=== PATIENT | male | born 1990 | race Hispanic/Latino ===

== ENCOUNTER → 2022-02-24 | Outpatient (CLI) | payer OTHER | END | disposition home or self-care (01) | LOC: RAH 09:23 | PROVIDERS: ATTEND Internal Medicine | DX: R19.00 Intra-abdominal and pelvic swelling, mass and lump, unspecified site (principal) | CPT/HCPCS: 76705 ==

== ENCOUNTER → 2022-03-07 | Outpatient (CLI) | payer BC, OTHER | END | disposition home or self-care (01) | LOC: SLP 20:29 → EDUNIT# 20:30 | PROVIDERS: ATTEND Internal Medicine | DX: G47.33 Obstructive sleep apnea (adult) (pediatric) (principal); R06.83 Snoring | CPT/HCPCS: 95811 ==

== ENCOUNTER → 2022-03-25 | Outpatient (CLI) | payer OTHER | END | disposition home or self-care (01) | LOC: RAH 16:07 | PROVIDERS: ATTEND Internal Medicine | DX: N50.3 Cyst of epididymis (principal); I87.8 Other specified disorders of veins; K40.30 Unilateral inguinal hernia, with obstruction, without gangrene, not specified as recurrent | CPT/HCPCS: 76870; 76882; 93970 ==